=== PATIENT | female | born 1945 | race Caucasian/White ===

== ENCOUNTER → 2019-02-27 | Outpatient (CLI) | payer MEDICARE ==
--- NOTE | 2019-02-27 15:40 | BD ---
EXAMINATION TYPE: Axial Bone Density DATE OF EXAM: 02/27/2019 COMPARISON: 2000 CLINICAL HISTORY: osteoporosis Height: 5'1 1/2 Weight: 131 FRAX RISK QUESTIONS: Family History (Parent hip fracture): y Secondary Osteoporosis: RISK FACTORS HISTORY OF: Postmenopausal woman: y MEDICATIONS: Additional Medications: Additional History: EXAM MEASUREMENTS: Bone mineral densitometry was performed using the [employer] System. Bone mineral density as measured about the Lumbar spine is: ----- L1-L4(G/cm2): 1.138 T Score Values are as follows: ----- L2: -1.3 ----- L3: 0.8 ----- L4: -0.2 ----- L1-L4: -0.3 Bone mineral density has: Decreased -8.7% since study of: 10/31/2000 Bone mineral density about the R hip (g/cm2): 0.777 Bone mineral density about the L hip (g/cm2): 0.699 T Score values are as follows: -----R Neck: -1.9 -----L Neck: -2.4 -----R Total: -2.0 -----L Total: -1.8 Bone mineral density has: Decreased -18.3% since study of: 10/31/2000 IMPRESSION: Osteopenia (T Score between -2.5 and -1) in both hips. There is slightly increased risk of fracture and the patient may be considered for treatment. Re-Screen 2-5 years. NOTE: T-SCORE=SD OF THE YOUNG ADULT MEAN.
--- NOTE | 2019-03-01 11:48 | MM ---
Reason for exam: screening (asymptomatic). Last mammogram was performed 9 years and 10 months ago. History: Patient is postmenopausal. Took hormonal contraceptives for 5 years. Took estrogen for 5 years. Took progesterone for 5 years. Physical Findings: A clinical breast exam by your physician is recommended on an annual basis and results should be correlated with mammographic findings. MG Screening Mammo w CAD Bilateral CC and MLO view(s) were taken. Prior study comparison: April 21, 2009, bilateral digital screening mammogram. April 17, 2008, bilateral digital screening mammogram. The breast tissue is heterogeneously dense. This may lower the sensitivity of mammography. There is no discrete abnormality. No significant changes when compared with prior studies. ASSESSMENT: Negative, BI-RAD 1 RECOMMENDATION: Routine screening mammogram of both breasts in 1 year.
== END | disposition home or self-care (01) ==
LOC: RADMAMWWP 14:00
PROVIDERS: ATTEND Internal Medicine Geriatric Medicine
DX: Z12.31 Encounter for screening mammogram for malignant neoplasm of breast (principal); M85.89 Other specified disorders of bone density and structure, multiple sites; M81.0 Age-related osteoporosis without current pathological fracture
CPT/HCPCS: 77067; 77080

== ENCOUNTER → 2022-02-01 | Outpatient (CLI) | payer MEDICARE ==
--- NOTE | 2022-02-02 08:23 | MM ---
Reason for Exam: Screening (asymptomatic). Last mammogram was performed 3 year(s) and 0 month(s) ago. Patient History: Menarche at age 11. First Full-Term at age 24. Postmenopausal. Patient used Estrogen for 5 years. Patient used Progesterone for 5 years. Patient used Hormonal Contraceptives for 5 years. Risk Values: Mary 5 year model risk: 1.9%. NCI Lifetime model risk: 3.4%. Prior Study Comparison: 04/17/2008 Bilateral Screening Mammogram, [facility]. 04/21/2009 Bilateral Screening Mammogram, [facility]. 02/27/2019 Bilateral Screening Mammogram, [facility]. Tissue Density: The breast tissue is heterogeneously dense. This may lower the sensitivity of mammography. Findings: Analyzed By CAD. There is no suspicious group of microcalcifications or new suspicious mass in either breast. Overall Assessment: Negative, BI-RAD 1 Management: Screening Mammogram of both breasts in 1 year. A clinical breast exam by your physician is recommended on an annual basis and results should be correlated with mammographic findings. Electronically signed and approved by: Everett Toribio M.D. Radiologis
--- NOTE | 2022-02-02 09:34 | BD ---
EXAMINATION TYPE: Axial Bone Density DATE OF EXAM: 02/01/2022 COMPARISON: 02/27/2019 CLINICAL HISTORY: 76 years year old Female. ICD-10 CODE: M81.0 OSTEOPOROSIS Height: 61 IN Weight: 133 LBS RISK FACTORS HISTORY OF: Active: YES Postmenopausal woman: AGE 48 Take estrogen and/or progesterone medications: NOT NOW How long: APPROX 5 YEARS MEDICATIONS: Additional Medications: VIT D, SUPPLEMENTS EXAM MEASUREMENTS: Bone mineral densitometry was performed using the [employer] System. Bone mineral density as measured about the Lumbar spine is: ----- L1-L4(G/cm2): 1.123 T Score Values are as follows: ----- L1: -1.5 ----- L2: -1.5 ----- L3: 0.9 ----- L4: -0.3 ----- L1-L4: -0.5 Bone mineral density has: Decreased -0.7% since study of: 02/27/2019 Bone mineral density about the R hip (g/cm2): 0.700 Bone mineral density about the L hip (g/cm2): 0.728 T Score values are as follows: -----R Neck: -2.4 -----L Neck: -2.2 -----R Total: -2.1 -----L Total: -2.0 Bone mineral density has: Decreased -3.0% since study of: 02/27/2019 FRAX%s: The graph provided illustrates a 18.5 chance for a major osteoporotic fx and a 6.3 chance for the hips probability for fx in 10 years time. IMPRESSION: Osteopenia (T Score between -2.5 and -1) is redemonstrated. There is slightly increased risk of fracture and the patient may be considered for treatment. Re-Screen 2-5 years. NOTE: T-SCORE=SD OF THE YOUNG ADULT MEAN.
== END | disposition home or self-care (01) ==
LOC: RADMAMWWP 15:06
PROVIDERS: ATTEND Internal Medicine Geriatric Medicine
DX: Z12.31 Encounter for screening mammogram for malignant neoplasm of breast (principal); M85.89 Other specified disorders of bone density and structure, multiple sites; Z78.0 Asymptomatic menopausal state
CPT/HCPCS: 77063; 77067; 77080

== ENCOUNTER → 2022-03-17 | Outpatient (CLI) | payer MEDICARE ==
--- NOTE | 2022-03-17 16:00 | XR ---
EXAMINATION TYPE: XR thoracic spine complete DATE OF EXAM: 03/17/2022 COMPARISON: None HISTORY: Back pain TECHNIQUE: 3 view thoracic spine FINDINGS: There are 12 thoracic type vertebral bodies. Pedicles are intact. Mild increased kyphosis w ithin the mid thoracic spine. There is loss of disc height at these levels. Vertebral body heights ar e preserved. IMPRESSION: 1. Mild increased kyphosis and degenerative disc changes. 2. No acute osseous abnormality radiographically evident. 3. MRI could be performed if additional evaluation would be of benefit.
--- NOTE | 2022-03-17 20:21 | XR ---
EXAMINATION TYPE: XR cervical spine comp DATE OF EXAM: 03/17/2022 COMPARISON: None HISTORY: Pain TECHNIQUE: 5 view cervical spine supplemented with a submental vertex view FINDINGS: Odontoid is limited but appears normal as visualized. Foraminal stenosis is present on the left C5-6 C6-7. Milder foraminal narrowing at C 5/6 is present on the right. Degenerative disc change s are present C3-4 mild degenerative disc change C4-5 loss of disc height C5-6 and mild degenerative disc changes C6-7. A grade 1 retrolisthesis of C3 posteriorly on C4 is present. IMPRESSION: 1. Grade 1 retrolisthesis C3 posterior on C4. 2. Multilevel degenerative disc changes greatest at C3-4 and C5-6. 3. Foraminal narrowing lower cervical spine 4. MRI could be performed if additional evaluation would be of benefit.
== END | disposition home or self-care (01) ==
LOC: RADXRMAIN 14:12
PROVIDERS: ATTEND Internal Medicine Geriatric Medicine
DX: M43.12 Spondylolisthesis, cervical region (principal); M99.71 Connective tissue and disc stenosis of intervertebral foramina of cervical region; M50.322 Other cervical disc degeneration at C5-C6 level; M51.34 Other intervertebral disc degeneration, thoracic region; M40.204 Unspecified kyphosis, thoracic region
CPT/HCPCS: 72050; 72072

== ENCOUNTER → 2024-02-05 | Outpatient (CLI) | payer MEDICARE ==
--- NOTE | 2024-02-06 08:27 | MM ---
Reason for Exam: Screening (asymptomatic). Last mammogram was performed 2 year(s) and 0 month(s) ago. Patient History: Menarche at age 11. First Full-Term at age 24. Postmenopausal. Patient used Estrogen for 5 years. Patient used Progesterone for 5 years. Patient used Hormonal Contraceptives for 5 years. Risk Values: Mary 5 year model risk: 1.8%. NCI Lifetime model risk: 2.8%. Prior Study Comparison: 04/21/2009 Bilateral Screening Mammogram, [facility]. 02/27/2019 Bilateral Screening Mammogram, [facility]. 02/01/2022 Bilateral MG 3D screening mammo w/cad, [facility]. Tissue Density: The breasts are heterogeneously dense, which may obscure small masses. Findings: Analyzed By CAD. There is no suspicious group of microcalcifications or new suspicious mass in either breast. Overall Assessment: Benign, BI-RAD 2 Management: Screening Mammogram of both breasts in 1 year. . Patient should continue monthly self-breast exams. A clinical breast exam by your physician is recommended on an annual basis. This exam should not preclude additional follow-up of suspicious palpable abnormalities. Note on Mary scores and lifetime risk: 1. A Mary score greater than 3% is considered moderate risk. If this is the case, consider specialist referral to assess eligibility for a risk reducing agent. 2. If overall lifetime risk for the development of breast cancer is 20% or higher, the patient may qualify for future screening with alternating mammogram and breast MRI. [facility], , 02/06/2024 8:24 AM. Electronically signed and approved by: Jaret Rolle M.D. Radiologis
--- NOTE | 2024-02-07 21:35 | BD ---
EXAMINATION TYPE: Axial Bone Density DATE OF EXAM: 02/05/2024 CLINICAL HISTORY: 78 years old Female. ICD-10 CODE: M81.0 AGE RELATED , Z78.0 Height: 61 in Weight: 129 lbs FRAX RISK QUESTIONS: EXAM MEASUREMENTS: Bone mineral densitometry was performed using the [employer] System. Bone mineral density as measured about the Lumbar spine is: ----- L1-L4(G/cm2): 1.119 T Score Values are as follows: ----- L1: -1.0 ----- L2: -1.3 ----- L3: 0.9 ----- L4: -0.9 ----- L1-L4: -0.5 Z Score Values are as follows: ----- L1: 1.0 ----- L2: 0.7 ----- L3: 3.0 ----- L4: 1.2 ----- L1-L4: 1.5 Bone mineral density has: Decreased -0.4% since study of: 02/01/2022 Bone mineral density about the R hip (g/cm2): 0.699 Bone mineral density about the L hip (g/cm2): 0.731 T Score values are as follows: -----R Neck: -2.5 -----L Neck: -2.2 -----R Total: -2.5 -----L Total: -2.2 Z Score values are as follows: -----R Neck: -0.2 -----L Neck: 0.1 -----R Total: -0.3 -----L Total: 0.0 Bone mineral density has: Decreased -04.5% since study of: 02/01/2022 FRAX%s: The graph provided illustrates a 19.8% chance for a major osteoporotic fx and a 7.1% chance f or the hips probability for fx in 10 years time. IMPRESSION: Osteopenia (T Score between -2.5 and -1). There is slightly increased risk of fracture and the patient may be considered for treatment. Re-Screen 2-5 years. NOTE: T-SCORE=SD OF THE YOUNG ADULT MEAN. [facility], Workstation: [id number]ENTERGUILLERMOMARY KAY, 02/07/2024 9:33 PM
== END | disposition home or self-care (01) ==
LOC: RADMAMWWP 14:27
PROVIDERS: ATTEND Internal Medicine Geriatric Medicine
DX: Z12.31 Encounter for screening mammogram for malignant neoplasm of breast (principal); M81.0 Age-related osteoporosis without current pathological fracture; Z78.0 Asymptomatic menopausal state; R92.333 Mammographic heterogeneous density, bilateral breasts; M85.89 Other specified disorders of bone density and structure, multiple sites
CPT/HCPCS: 77063; 77067; 77080